=== PATIENT | female | born 1930 ===

== ENCOUNTER 2019-06-02 14:18 | Emergency (ER) | payer OTHER ==
[~2019-06-02] VITALS: Ht 142.2 cm; Wt 65.8 kg
== END 2019-06-02 22:53 | disposition home or self-care (01) ==
LOC: ER 14:18
DX: I83.028 Varicose veins of left lower extremity with ulcer other part of lower leg (principal); L97.829 Non-pressure chronic ulcer of other part of left lower leg with unspecified severity

== ENCOUNTER 2019-10-08 12:43 | Outpatient (CLI) | payer OTHER | END 2019-10-08 12:46 | disposition home or self-care (01) | LOC: TOM 12:43 | DX: R41.89 Other symptoms and signs involving cognitive functions and awareness (principal); F03.90 Unspecified dementia, unspecified severity, without behavioral disturbance, psychotic disturbance, mood disturbance, and anxiety; R41.0 Disorientation, unspecified ==

== ENCOUNTER 2019-10-15 09:32 | Outpatient (CLI) | payer OTHER | END 2019-10-15 09:36 | disposition home or self-care (01) | LOC: NUCLEAR 09:32 | DX: R41.0 Disorientation, unspecified (principal) ==